=== PATIENT | male | born 1980 | race Caucasian/White ===

== ENCOUNTER 2018-07-29 13:17 | Observation (INO) | payer OTHER ==
[2018-07-29] MEDS ORDERED: KETOROLAC TROMETHAMINE INJ/PF 30 MG/1 ML SDV IV ONE (14:56)
--- NOTE | 2018-07-29 15:23 | ER Document Report ---
ED Medical Screen (RME) - General Chief Complaint: Chest Pain Stated Complaint: DIZZINESS,LEFT FLANK PAIN,CHEST PAIN Time Seen by Provider: 07/29/18 14:38 Notes: Patient is a 38-year-old male that presents to the emergency department for chief complaint of left chest pain and left flank pain. Patient reports that his pain is worse with a deep breath. Denies recent prolonged travel, or immobilization or recent surgeries. ROS: Other than noted above, the 12 point review of systems was reviewed with the patient and were negative, all pertinent findings are included in the HPI. PHYSICAL EXAMINATION: Vital signs reviewed. GENERAL: Well-appearing, well-nourished and in no acute distress. HEAD: Atraumatic, normocephalic. EYES: Pupils equal round extraocular movements intact, conjunctiva are normal. ENT: Nares patent NECK: Normal range of motion CV: Heart regular rate and rhythm LUNGS: No respiratory distress Abdomen: Left CVA tenderness with palpation Musculoskeletal: Normal range of motion NEUROLOGICAL: Normal speech PSYCH: Normal mood, normal affect. MDM: Patient seen and examined for rapid initial assessment. Vital signs reviewed. A comprehensive ED assessment and evaluation of the patient, analysis of test results and completion of the medical decision making process will be conducted by additional ED providers. *Note is created using voice recognition software and may contain spelling, syntax or grammatical errors. - Related Data Allergies/Adverse Reactions: No Known Allergies Allergy (Verified 07/29/18 14:47) Past Medical History - Social History Chew tobacco use (# tins/day): Yes - 1 Frequency of alcohol use: Social Drug Abuse: None Renal/ Medical History: Denies: Hx Peritoneal Dialysis Past Surgical History: Reports: Hx Orthopedic Surgery, Hx Testicular Surgery, Hx Tonsillectomy Physical Exam - Vital signs Vitals: Temp Pulse Resp BP Pulse Ox 99.4 F 90 16 148/81 H 97 07/29/18 13:48 07/29/18 13:48 07/29/18 13:48 07/29/18 13:48 07/29/18 13:48 Course - Vital Signs Vital signs: Temp Pulse Resp BP Pulse Ox 99.4 F 90 16 148/81 H 97 07/29/18 13:48 07/29/18 13:48 07/29/18 13:48 07/29/18 13:48 07/29/18 13:48
[2018-07-29 15:59] LABS: ABSOLUTE EOSINOPHILS # (AUTO) 0.1 10^3/uL (0.0-0.6); ABSOLUTE LYMPHOCYTES (AUTO) 1.3 10^3/uL (0.5-4.7); ABSOLUTE MONOCYTES (AUTO) 0.7 10^3/uL (0.1-1.4); ABSOLUTE NEUT (AUTO) 6.9 10^3/uL (1.7-8.2); BASOPHILS % (AUTO) 0.5 % (0-2); EOSINOPHILS % (AUTO) 0.9 % (0-6); HEMATOCRIT 41.6 % (37.9-51.0); HEMOGLOBIN 14.5 g/dL (13.5-17.0); LYMPHOCYTES % (AUTO) 14.7 % (13-45); MEAN CORPUSCULAR HEMOGLOBIN 34.6 pg (27.0-33.4); MEAN CORPUSCULAR HGB CONC 34.8 g/dL (32.0-36.0); MEAN CORPUSCULAR VOLUME 100 fl (80-97); MONOCYTES % (AUTO) 7.9 % (3-13); PLATELET COUNT 293 10^3/uL (150-450); RED BLOOD COUNT 4.18 10^6/uL (4.35-5.55); TOTAL CELLS COUNTED % (AUTO) 100 %
--- NOTE | 2018-07-29 16:19 | RADIOLOGY REPORT (SQ) ---
EXAM DESCRIPTION: CHEST SINGLE VIEW COMPLETED DATE/TIME: 07/29/2018 4:10 pm REASON FOR STUDY: chest pain COMPARISON: None. EXAM PARAMETERS: NUMBER OF VIEWS: One view. TECHNIQUE: Single frontal radiographic view of the chest acquired. RADIATION DOSE: NA LIMITATIONS: None. FINDINGS: LUNGS AND PLEURA: No opacities, masses or pneumothorax. No pleural effusion. MEDIASTINUM AND HILAR STRUCTURES: No masses. Contour normal. HEART AND VASCULAR STRUCTURES: Heart normal in size. Normal vasculature. BONES: No acute findings. HARDWARE: None in the chest. OTHER: No other significant finding. IMPRESSION: NO ACUTE RADIOGRAPHIC FINDING IN THE CHEST. TECHNICAL DOCUMENTATION: JOB ID: [id number] [id number] All Rights Reserved Reading location - IP/workstation name: [email or web address]
[2018-07-29 16:27] LABS: APPEARANCE,URINE CLEAR; BILIRUBIN,URINE NEGATIVE (NEGATIVE); COLOR,URINE YELLOW; GLUCOSE, URINE NEGATIVE (NEGATIVE); KETONES,URINE 80 mg/dL (NEGATIVE); LEUKOCYTE ESTERASE,URINE NEGATIVE (NEGATIVE); NITRITE,URINE NEGATIVE (NEGATIVE); PROTEIN,URINE NEGATIVE (NEGATIVE); URINE SPECIFIC GRAVITY 1.027; UROBILINOGEN,URINE NEGATIVE mg/dL (<2.0)
[2018-07-29 16:28] LABS: ALANINE AMINOTRANSFERASE 103 U/L (21-72); ALBUMIN 4.8 g/dL (3.5-5.0); ALKALINE PHOSPHATASE 64 U/L (38-126); ANION GAP 14 (5-19); ASPARTATE AMINO TRANSFERASE 46 U/L (17-59); BILIRUBIN,DIRECT 0.2 mg/dL (0.0-0.4); BILIRUBIN,TOTAL 0.6 mg/dL (0.2-1.3); BLOOD UREA NITROGEN 14 mg/dL (7-20); CALCIUM 9.7 mg/dL (8.4-10.2); CARBON DIOXIDE 28 mmol/L (22-30); CHLORIDE 101 mmol/L (98-107); GLUCOSE 87 mg/dL (75-110); POTASSIUM 4.7 mmol/L (3.6-5.0); SODIUM 143.2 mmol/L (137-145); TOTAL PROTEIN 7.2 g/dL (6.3-8.2)
--- NOTE | 2018-07-29 17:14 | ER Document Report ---
ED General - General Chief Complaint: Chest Pain Stated Complaint: DIZZINESS,LEFT FLANK PAIN,CHEST PAIN Time Seen by Provider: 07/29/18 14:38 Notes: Patient is a 38-year-old male who presents to the emergency department with a chief complaint of left sided chest pain and left sided flank pain. He states that he has been having his symptoms for the past few days and has progressively gotten worse. He does have some nausea, dizziness, and pain when he takes deep breaths. He does have a history of testicular cancer. He denies any dysuria, hematuria, or penile discharge. He denies cigarette use, admits to drinking about 1-2 drinks a day, and denies any illicit drug use. - Related Data Allergies/Adverse Reactions: No Known Allergies Allergy (Verified 07/29/18 14:47) Past Medical History - Social History Smoking Status: Current Every Day Smoker Chew tobacco use (# tins/day): Yes - 1 Frequency of alcohol use: Social Drug Abuse: None Family History: Reviewed & Not Pertinent Patient has suicidal ideation: No Patient has homicidal ideation: No Renal/ Medical History: Denies: Hx Peritoneal Dialysis Past Surgical History: Reports: Hx Orthopedic Surgery, Hx Testicular Surgery, Hx Tonsillectomy Review of Systems - Review of Systems Notes: REVIEW OF SYSTEMS: CONSTITUTIONAL : Denies recent illness. Denies recent unintentional weight loss. Denies fever, chills, or sweats. EENT: Denies eye, ear, throat, or mouth pain, discharge, or symptoms. Denies nasal or sinus congestion. CARDIOVASCULAR: See HPI RESPIRATORY: See HPI GASTROINTESTINAL: Denies nausea, vomiting, and diarrhea. Denies abdominal pain. Denies constipation. GENITOURINARY: Denies difficulty urinating, burning, blood in urine, urgency or frequency. MUSCULOSKELETAL: See HPI SKIN: Denies rash, itchiness, or lesions HEMATOLOGIC : Denies easy bruising or bleeding. LYMPHATIC: Denies swollen, painful, enlarged glands. NEUROLOGICAL: Denies no numbness or tingling denies weakness. Denies headache. Denies altered mental status. Denies alteration in speech. PSYCHIATRIC: Denies stress, anxiety, alteration in sleep patterns, or depression. All other systems reviewed and negative. Physical Exam - Vital signs Vitals: Temp Pulse Resp BP Pulse Ox 99.4 F 90 16 148/81 H 97 07/29/18 13:48 07/29/18 13:48 07/29/18 13:48 07/29/18 13:48 07/29/18 13:48 - Notes Notes: PHYSICAL EXAMINATION: GENERAL: Appears well, healthy, well-nourished, no acute distress. HEAD: Normocephalic, atraumatic. EYES: PERRL, conjunctiva normal, all extraocular movements intact, sclera nonicteric ENT: Moist mucous membranes. NECK: Supple, no noticeable swelling, redness, rash. Normal range of motion. LUNGS: Equal breath sounds bilaterally and clear to auscultation. No wheezes rales or rhonchi. CARDIOVASCULAR: S1-S2, regular rate, regular rhythm. Radial pulses 2+, normal. ABDOMEN: Normoactive bowel sounds. Soft, nontender, no guarding, no rebound tenderness, and no masses palpated. EXTREMITIES: Normal strength and range of motion, no pitting or edema. No cyanosis. NEUROLOGICAL: Moves all extremities upon command. Strength 5/5 in all extremities. PSYCH: Normal mood, normal affect. SKIN: Warm, dry. No rash, lesions, ulcerations noted. Normal skin turgor. Course - Re-evaluation Re-evalutation: Differential diagnosis includes NSTEMI, pneumonia, left renal calculi, pulmonary embolism, and spontaneous pneumothorax. 07/29/18 17:30 Patient's chest x-ray is negative for any infiltrates. His CBC, chemistries, and urinalysis are unremarkable. Patient's d-dimer is 1.25. He will be sent for a CT of the chest to rule out pulmonary emboli. 07/29/18 1840 I received a call from the radiologist, Dr. Huizar. The patient does have a left lobe pulmonary emboli noted on his CT. He also does have liver disease. 07/29/18 18:[address] Darnell, the patient will be admitted as inpatient. - Vital Signs Vital signs: Temp Pulse Resp BP Pulse Ox 98.5 F 90 12 150/90 H 99 07/29/18 20:13 07/29/18 13:48 07/29/18 20:13 07/29/18 20:13 07/29/18 20:13 - Laboratory Result Diagrams: 07/29/18 15:44 07/29/18 15:44 Laboratory results interpreted by me: 07/29/18 07/29/18 07/29/18 15:44 15:44 15:44 RBC 4.18 L MCV 100 H MCH 34.6 H RDW 15.0 H D-Dimer ALT 103 H Urine Ketones 80 H 07/29/18 15:44 RBC MCV MCH RDW D-Dimer 1.25 H ALT Urine Ketones - EKG Interpretation by Me Additional EKG results interpreted by me: 07/29/18 18:49 Sinus rhythm. Heart rate 84. WI 132; QRS 94; QT 356; QTC 421. No ST eleva tions or depressions. Discharge - Discharge Clinical Impression: Pulmonary emboli Qualifiers: Pulmonary embolism type: unspecified Chronicity: acute Acute cor pulmonale presence: without acute cor pulmonale Qualified Code(s): I26.99 - Other pulmonary embolism without acute cor pulmonale Condition: Fair Disposition: ADMITTED INPATIENT Admitting Provider: Hospitalist Unit Admitted: [facility], [place]
--- NOTE | 2018-07-29 18:55 | RADIOLOGY REPORT (SQ) ---
EXAM DESCRIPTION: CTA CHEST COMPLETED DATE/TIME: 07/29/2018 6:11 pm REASON FOR STUDY: positive d-dimer; chest pain COMPARISON: None. TECHNIQUE: CT scan of the chest performed using helical scanning technique with dynamic intravenous contrast injection. Images reviewed with lung, soft tissue and bone windows. Reconstructed coronal and sagittal MPR images reviewed. Additional 3 dimensional post-processing performed to develop Maximal Intensity Projection images (WA P). All images stored on PACS. All CT scanners at this facility use dose modulation, iterative reconstruction, and/or weight based d osing when appropriate to reduce radiation dose to as low as reasonably achievable (ALARA). [facility]: Dose Right [facility]: CareDose [facility]: Dose Right [facility]: Teradose 4D [facility]: [employer] CONTRAST TYPE AND DOSE: contrast/concentration: Isovue 350.00 mg/ml; Total Contrast Delivered: 86.0 ml; Total Saline Delivered: 80.0 ml Contrast bolus optimized for the pulmonary arteries. Not diagnostic for the aorta. RENAL FUNCTION: GFR > 60. RADIATION DOSE: CT Rad equipment meets quality standard of care and radiation dose reduction techniq ues were employed. CTDIvol: 23.1 - 33.1 mGy. DLP: 1006 mGy-cm. . LIMITATIONS: None. FINDINGS: LUNGS AND PLEURA: Trace subsegmental atelectasis and tiny pleural effusion in the left lo wer lobe. No pneumothorax. No pleural effusions or pleural calcifications. AORTA AND GREAT VESSELS: No aneurysm. Contrast bolus not optimized for the aorta. HEART: No pericardial effusion. No significant coronary artery calcifications. PULMONARY ARTERIES: Small segmental pulmonary arterial embolism in the posterior segment left lower lobe. No emboli visualized in the central pulmonary arteries or remaining the segmental branches. HILAR AND MEDIASTINAL STRUCTURES: No identified masses or abnormal nodes. HARDWARE: None in the chest. UPPER ABDOMEN: Two enhancing lesions in a diffusely fatty infiltrated liver, the largest measures mercy roximately 4.2 cm with mild heterogeneous appearance, this is in the inferior right lobe adjacent to the IVC, a 2nd 2.5 cm lesion is present in the posterior right lobe near the dome of the diaphragm. Limited exam. THYROID AND OTHER SOFT TISSUES: No masses. No adenopathy. BONES: No acute or significant finding. 3D MIPS: Confirm above findings. OTHER: No other significant finding. IMPRESSION: Small segmental pulmonary arterial embolism in the posterior segment left lower lobe. No emboli visualized in the central pulmonary arteries or remaining the segmental branches. Two enhancing lesions in a diffusely fatty infiltrated liver, the largest measures approximately 4.2 cm with mild heterogeneous appearance, this is in the inferior right lobe adjacent to the IVC, a 2nd 2.5 cm lesion is present in the posterior right lobe near the dome of the diaphragm. Limited exam. Consider outpatient follow-up ultrasound or dedicated hepatic protocol contrast CT to further assess. COMMENT: These results were called to Dr. Frost at 1840 hours. Results were confirmed and read back . Quality ID # [id number]: Final reports with documentation of one or more dose reduction techniques (e.g., Au tomated exposure control, adjustment of the mA and/or kV according to patient size, use of iterative reconstruction technique) TECHNICAL DOCUMENTATION: JOB ID: [id number] [employer]- All Rights Reserved Reading location - IP/workstation name: [email or web address]
--- NOTE | 2018-07-29 19:29 | EKG REPORT ---
SEVERITY:- ABNORMAL ECG - SINUS RHYTHM NONSPECIFIC T ABNORMALITIES, INFERIOR LEADS : Confirmed by: Samir Yang MD 29-Jul-2018 19:29:08
[2018-07-29] MEDS ORDERED: ENOXAPARIN SODIUM INJ 120 MG/0.8 ML DISP.SYRIN SUBCUT SCH (19:45)
[2018-07-29] MEDS ORDERED: ONDANSETRON HCL INJ/PF 4 MG/2 ML SDV IV PRN (20:24)
[2018-07-29] MEDS ORDERED: ONDANSETRON 4 MG TAB.RAPDIS PO PRN (20:24)
[2018-07-29] MEDS ORDERED: LORAZEPAM INJ 2 MG/1 ML VIAL IV PRN (20:31)
[2018-07-29] MEDS ORDERED: MORPHINE SULFATE 10 MG/ML INJ IV PRN (20:43)
--- NOTE | 2018-07-29 20:47 | PDOC H&P ---
History of Present Illness Admission Date/PCP: 07/29/18 18:54 Patient complains of: Left-sided chest pain for the last few days History of Present Illness: MARIO VARGAS is a 38 year old male with history of hypertension, testicular cancer left side status post surgery, mild PTSD, anxiety disorder came to the emergency room with complaints of left-sided chest pain for the last several days. The chest pain gotten worse and from yesterday. 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 The workup done in the ER shows small pulmonary embolism in the left lower lobe on CT. Medical consult was called for admission and further management. Past Medical History Cardiac Medical History: Reports: Hypertension Malignancy Medical History: Reports: Other - Testicular cancer status post r emoval of the left testicle and complete rec GI Medical History: Reports: None Musculoskeltal Medical History: Reports: Arthritis Psychiatric Medical History: Reports: Depression, General Anxiety Disorder Traumatic Medical History: Reports: None Past Surgical History Past Surgical History: Reports: Orthopedic Surgery, Tonsillectomy Social History Smoking Status: Current Every Day Smoker Frequency of Alcohol Use: Heavy Hx Recreational Drug Use: No Hx Prescription Drug Abuse: No - Advance Directive Resuscitation Status: Full Code Family History Parental Family History Reviewed: Yes - Mother with myelodysplastic syndrome Children Family History Reviewed: Yes Sibling(s) Family History Reviewed.: Yes Medication/Allergy Home Medications: Bupropion HCl [Wellbutrin Xl 300mg 24hr Tablet] 300 mg PO DAILY 07/29/18 Allergies/Adverse Reactions: No Known Allergies Allergy (Verified 07/29/18 14:47) Review of Systems Constitutional: ABSENT: chills, fatigue, fever(s), headache(s), weakness Eyes: ABSENT: visual disturbances Ears: ABSENT: hearing changes Nose, Mouth, and Throat: ABSENT: sore throat Cardiovascular: PRESENT: chest pain Respiratory: PRESENT: dyspnea Gastrointestinal: ABSENT: diarrhea, dysphagia, melena, nausea, vomiting Musculoskeletal: ABSENT: joint swelling Integumentary: ABSENT: rash, wounds Neurological: PRESENT: dizziness Psychiatric: ABSENT: anxiety, depression, homidical ideation, suicidal ideation Endocrine: ABSENT: cold intolerance, heat intolerance, polydipsia, polyuria Physical Exam Vital Signs: Temp Pulse Resp BP Pulse Ox 98.5 F 90 12 150/90 H 99 07/29/18 20:13 07/29/18 13:48 07/29/18 20:13 07/29/18 20:13 07/29/18 20:13 Intake & Output 07/28/18 07/29/18 07/30/18 06:59 06:59 06:59 Weight 112.6 kg General appearance: PRESENT: no acute distress Head exam: PRESENT: atraumatic Eye exam: PRESENT: PERRLA Mouth exam: PRESENT: dry mucosa Neck exam: ABSENT: carotid bruit, JVD, lymphadenopathy, thyromegaly Respiratory exam: PRESENT: clear to auscultation mariela. ABSENT: rales, rhonchi, wheezes Cardiovascular exam: PRESENT: RRR. ABSENT: diastolic murmur, rubs, systolic murmur GI/Abdominal exam: PRESENT: normal bowel sounds, soft. ABSENT: distended, guarding, mass, organolmegaly, rebound, tenderness Extremities exam: PRESENT: full ROM. ABSENT: calf tenderness, clubbing, pedal edema Neurological exam: PRESENT: alert, awake, oriented to person, oriented to place, oriented to time, oriented to situation, CN II-XII grossly intact. ABSENT: motor sensory deficit Psychiatric exam: PRESENT: appropriate affect, normal mood. ABSENT: homicidal ideation, suicidal ideation Results Laboratory Results: 07/29/18 15:44 07/29/18 15:44 07/29/18 07/29/18 07/29/18 15:44 15:44 15:44 WBC 9.0 RBC 4.18 L Hgb 14.5 Hct 41.6 MCV 100 H MCH 34.6 H MCHC 34.8 RDW 15.0 H Plt Count 293 Seg Neutrophils % 76.0 Lymphocytes % 14.7 Monocytes % 7.9 Eosinophils % 0.9 Basophils % 0.5 Absolute Neutrophils 6.9 Absolute Lymphocytes 1.3 Absolute Monocytes 0.7 Absolute Eosinophils 0.1 Absolute Basophils 0.0 Sodium 143.2 Potassium 4.7 Chloride 101 Carbon Dioxide 28 Anion Gap 14 BUN 14 Creatinine 0.90 Est GFR ( Amer) > 60 Est GFR (Non-Af Amer) > 60 Glucose 87 Calcium 9.7 Total Bilirubin 0.6 AST 46 ALT 103 H Alkaline Phosphatase 64 Total Protein 7.2 Albumin 4.8 Urine Color YELLOW Urine Appearance CLEAR Urine pH 5.0 Ur Specific [place] 1.027 Urine Protein NEGATIVE Urine Glucose (UA) NEGATIVE Urine Ketones 80 H Urine Blood NEGATIVE Urine Nitrite NEGATIVE Ur Leukocyte Esterase NEGATIVE Urine WBC (Auto) 0 Urine RBC (Auto) 0 07/29/18 07/29/18 15:44 18:29 Troponin I < 0.012 < 0.012 Impressions: Chest X-Ray 07/29/18 14:55 IMPRESSION: NO ACUTE RADIOGRAPHIC FINDING IN THE CHEST. Chest/Abdomen CTA 07/29/18 17:06 IMPRESSION: Small segmental pulmonary arterial embolism in the posterior segment left lower lobe. No emboli visualized in the central pulmonary arteries or remaining the segmental branches. Two enhancing lesions in a diffusely fatty infiltrated liver, the largest measures approximately 4.2 cm with mild heterogeneous appearance, this is in the inferior right lobe adjacent to the IVC, a 2nd 2.5 cm lesion is present in the posterior right lobe near the dome of the diaphragm. Limited exam. Consider outpatient follow-up ultrasound or dedicated hepatic protocol contrast CT to further assess. Assessment & Plan - Diagnosis (1) Pulmonary emboli Qualifiers: Pulmonary embolism type: unspecified Chronicity: acute Acute cor pulmonale presence: without acute cor pulmonale Qualified Code(s): I26.99 - Other pulmonary embolism without acute cor pulmonale Is this a current diagnosis for this admission?: Yes Plan: 07/29/2018-CT done in the emergency room because of the chest pain found to have a small SM[facility] mental pulmonary arterial embolism in the posterior segment of the left lower lobe. Patient is going to be in IMCU started on Lovenox 110 mg subcu twice daily. Started on Xarelto 10 mg p.o. daily from [facility]. Hematology consult was requested. Cardiac enzymes x3 was requested. Echocardiogram is going to be requested. Antiphospholipid antibody workup was requested. Going to put him on morphine 2 mg IV every 6 as needed for pain. Going to check PT/INR today and tomorrow. PT studies will be done to rule out any clots in the lower extremities. (2) HTN (hypertension) Qualifiers: Hypertension type: essential hypertension Qualified Code(s): I10 - Essential (primary) hypertension Is this a current diagnosis for this admission?: Yes Plan: 07/29/2018-patient is given the history of hypertension but is not any hypertensive medications at home his blood pressure here in the emergency room 148/81. I am going to start him on lisinopril 10 mg p.o. daily. (3) Anxiety Is this a current diagnosis for this admission?: Yes Plan: 07/29/2018-patient is given the history of anxiety and he says is getting worse with the Wellbutrin. I put him on Ativan 1 mg IV every 6 as needed for anxiety and agitation. (4) Testicular cancer Is this a current diagnosis for this admission?: Yes Plan: 07/29/2018-patient given the history of testicular cancer left-sided and he said left testicles was removed and cancer is completely cured he is not following with oncologist anymore. (5) Hepatic lesion Is this a current diagnosis for this admission?: Yes Plan: 07/29/2018-patient has hepatic lesions, has history of testicular cancer planning to arrange for CT abdomen and pelvis with p.o. IV contrast with focus on the liver. - Time Time Spent: 50 to 70 Minutes Smoking Cessation Education: over 10 minutes Medications reviewed and adjusted accordingly: Yes Anticipated discharge: Home
[2018-07-29] MEDS: ENOXAPARIN SODIUM INJ 120 MG/0.8 ML DISP.SYRIN SUBCUT SCH (22:16)
[2018-07-29] MEDS: FAMOTIDINE INJ/PF 20 MG/2 ML SDV IV SCH (22:21)
[2018-07-30 01:13] LABS: CREATINE KINASE MB < 0.22 ng/mL (<4.55); TROPONIN I < 0.012 ng/mL
[2018-07-30 06:51] LABS: ABSOLUTE EOSINOPHILS # (AUTO) 0.2 10^3/uL (0.0-0.6); ABSOLUTE MONOCYTES (AUTO) 0.7 10^3/uL (0.1-1.4); ABSOLUTE NEUT (AUTO) 4.6 10^3/uL (1.7-8.2); BASOPHILS % (AUTO) 0.6 % (0-2); EOSINOPHILS % (AUTO) 2.6 % (0-6); HEMATOCRIT 39.6 % (37.9-51.0); HEMOGLOBIN 13.4 g/dL (13.5-17.0); LYMPHOCYTES % (AUTO) 26.9 % (13-45); MEAN CORPUSCULAR HEMOGLOBIN 34.2 pg (27.0-33.4); MEAN CORPUSCULAR HGB CONC 33.9 g/dL (32.0-36.0); MEAN CORPUSCULAR VOLUME 101 fl (80-97); MONOCYTES % (AUTO) 9.4 % (3-13); PLATELET COUNT 278 10^3/uL (150-450); RED BLOOD COUNT 3.93 10^6/uL (4.35-5.55); RED CELL DISTRIBUTION WIDTH 15.1 % (11.5-14.0); SEGMENTED NEUTROPHILS % (AUTO) 60.5 % (42-78); TOTAL CELLS COUNTED % (AUTO) 100 %; WHITE BLOOD COUNT 7.5 10^3/uL (4.0-10.5)
[2018-07-30 06:59] LABS: INTERNATIONAL RATION (INR) 0.99; PROTHROMBIN TIME 13.6 SEC (11.4-15.4)
[2018-07-30 07:31] LABS: ALANINE AMINOTRANSFERASE 86 U/L (21-72); ALKALINE PHOSPHATASE 57 U/L (38-126); ANION GAP 11 (5-19); ASPARTATE AMINO TRANSFERASE 43 U/L (17-59); BILIRUBIN,DIRECT 0.2 mg/dL (0.0-0.4); BILIRUBIN,TOTAL 0.8 mg/dL (0.2-1.3); BLOOD UREA NITROGEN 15 mg/dL (7-20); CALCIUM 9.2 mg/dL (8.4-10.2); CARBON DIOXIDE 26 mmol/L (22-30); CHLORIDE 104 mmol/L (98-107); GLUCOSE 80 mg/dL (75-110); POTASSIUM 5.2 mmol/L (3.6-5.0); SODIUM 140.5 mmol/L (137-145); TOTAL PROTEIN 6.1 g/dL (6.3-8.2)
[2018-07-30 07:48] LABS: CREATINE KINASE MB < 0.22 ng/mL (<4.55); TROPONIN I < 0.012 ng/mL
--- NOTE | 2018-07-30 08:10 | EKG REPORT ---
SEVERITY:- NORMAL ECG - SINUS RHYTHM : Confirmed by: Samir Yang MD 30-Jul-2018 08:09:22
[2018-07-30] MEDS ORDERED: NICOTINE 14 MG/24 HR PATCH.TD24 TD SCH (10:00)
[2018-07-30] MEDS: LISINOPRIL 10 MG TABLET PO SCH (10:15)
[2018-07-30] MEDS: FAMOTIDINE INJ/PF 20 MG/2 ML SDV IV SCH ×2 (10:15→22:50)
[2018-07-30] MEDS: ENOXAPARIN SODIUM INJ 120 MG/0.8 ML DISP.SYRIN SUBCUT SCH (10:17)
--- NOTE | 2018-07-30 10:39 | RADIOLOGY REPORT (SQ) ---
EXAM DESCRIPTION: VENOUS BILATERAL LOWER COMPLETED DATE/TIME: 07/30/2018 10:25 am REASON FOR STUDY: r/o dvt COMPARISON: None. TECHNIQUE: Dynamic and static morrison scale and color images acquired of both lower extremity venous sy stems. Selected spectral images acquired with additional compression and augmentation maneuvers. Imag es stored on PACS. LIMITATIONS: None. FINDINGS: RIGHT LEG COMMON FEMORAL AND FEMORAL: Normal phasicity, compression and augmentation. No visualized echogenic m aterial on morrison scale. No defects on color images. POPLITEAL: Normal compression and augmentation. No visualized echogenic material on morrison scale. No de fects on color images. CALF VESSELS: Normal compression and augmentation. No visualized echogenic material on morrison scale. No defects on color image. GSV AND SSV: Normal compression. No visualized echogenic material on morrison scale. No defects on color images. ANY DEEP VENOUS INSUFFICIENCY: Not evaluated. ANY EVIDENCE OF POPLITEAL CYST: No. OTHER: No other significant finding. LEFT LEG COMMON FEMORAL AND FEMORAL: Normal phasicity, compression and augmentation. No visualized echogenic m aterial on morrison scale. No defects on color images. POPLITEAL: Normal compression and augmentation. No visualized echogenic material on morrison scale. No de fects on color images. CALF VESSELS: Normal compression and augmentation. No visualized echogenic material on morrison scale. No defects on color images. GSV AND SSV: Normal compression. No visualized echogenic material on morrison scale. No defects on color images. ANY DEEP VENOUS INSUFFICIENCY: Not evaluated. ANY EVIDENCE POPLITEAL CYST: No. OTHER: No other significant finding. IMPRESSION: NO EVIDENCE DVT OR SVT IN EITHER LEG. TECHNICAL DOCUMENTATION: JOB ID: [id number]- All Rights Reserved Reading location - IP/workstation name: [email or web address]
--- NOTE | 2018-07-30 11:17 | PDOC PROGRESS REPORT ---
Subjective Progress Note for:: 07/30/18 Subjective:: Admitted on 07/29 after found to have sub-segmental PE on CTA. Continues to have lower back pain and occasional SOB. Notes that he has had increased stress lately. Was started on Lovenox 1mg/kg BID + Xarelto by admitting doctor. Tolerating well without evidence bleeding. Pt was getting TTE and lower extremity dopplers at time of exam. NO other complaints at this point. Reason For Visit: PULMONARY EMBOLISM Physical Exam Vital Signs: Temp Pulse Resp BP Pulse Ox 98.2 F 56 L 18 132/72 H 99 07/30/18 08:13 07/30/18 08:13 07/30/18 08:13 07/30/18 08:13 07/30/18 08:13 Intake & Output 07/29/18 07/30/18 07/31/18 06:59 06:59 06:59 Intake Total 1250 Balance 1250 Weight 113 kg General appearance: PRESENT: no acute distress, cooperative, well-developed, well-nourished Mouth exam: PRESENT: moist Respiratory exam: PRESENT: symmetrical, unlabored. ABSENT: chest wall tenderness, tachypnea Cardiovascular exam: PRESENT: RRR. ABSENT: tachycardia GI/Abdominal exam: PRESENT: soft. ABSENT: mass, tenderness Extremities exam: ABSENT: +1 edema Neurological exam: PRESENT: alert, awake, CN II-XII grossly intact Psychiatric exam: PRESENT: appropriate affect, normal mood Skin exam: PRESENT: dry, intact, warm Results Laboratory Results: 07/30/18 06:18 07/30/18 06:18 07/29/18 07/29/18 07/29/18 15:44 15:44 15:44 WBC 9.0 RBC 4.18 L Hgb 14.5 Hct 41.6 MCV 100 H MCH 34.6 H MCHC 34.8 RDW 15.0 H Plt Count 293 Seg Neutrophils % 76.0 Lymphocytes % 14.7 Monocytes % 7.9 Eosinophils % 0.9 Basophils % 0.5 Absolute Neutrophils 6.9 Absolute Lymphocytes 1.3 Absolute Monocytes 0.7 Absolute Eosinophils 0.1 Absolute Basophils 0.0 Sodium 143.2 Potassium 4.7 Chloride 101 Carbon Dioxide 28 Anion Gap 14 BUN 14 Creatinine 0.90 Est GFR ( Amer) > 60 Est GFR (Non-Af Amer) > 60 Glucose 87 Calcium 9.7 Total Bilirubin 0.6 AST 46 ALT 103 H Alkaline Phosphatase 64 Total Protein 7.2 Albumin 4.8 TSH Urine Color YELLOW Urine Appearance CLEAR Urine pH 5.0 Ur Specific [place] 1.027 Urine Protein NEGATIVE Urine Glucose (UA) NEGATIVE Urine Ketones 80 H Urine Blood NEGATIVE Urine Nitrite NEGATIVE Ur Leukocyte Esterase NEGATIVE Urine WBC (Auto) 0 Urine RBC (Auto) 0 07/30/18 07/30/18 07/30/18 06:18 06:18 06:18 WBC 7.5 RBC 3.93 L Hgb 13.4 L Hct 39.6 MCV 101 H MCH 34.2 H MCHC 33.9 RDW 15.1 H Plt Count 278 Seg Neutrophils % 60.5 Lymphocytes % 26.9 Monocytes % 9.4 Eosinophils % 2.6 Basophils % 0.6 Absolute Neutrophils 4.6 Absolute Lymphocytes 2.0 Absolute Monocytes 0.7 Absolute Eosinophils 0.2 Absolute Basophils 0.0 Sodium 140.5 Potassium 5.2 H Chloride 104 Carbon Dioxide 26 Anion Gap 11 BUN 15 Creatinine 0.89 Est GFR ( Amer) > 60 Est GFR (Non-Af Amer) > 60 Glucose 80 Calcium 9.2 Total Bilirubin 0.8 AST 43 ALT 86 H Alkaline Phosphatase 57 Total Protein 6.1 L Albumin 4.0 TSH 9.13 H Urine Color Urine Appearance Urine pH Ur Specific [place] Urine Protein Urine Glucose (UA) Urine Ketones Urine Blood Urine Nitrite Ur Leukocyte Esterase Urine WBC (Auto) Urine RBC (Auto) 07/29/18 07/29/18 07/30/18 15:44 18:29 00:38 Creatine Kinase 54 L CK-MB (CK-2) Troponin I < 0.012 < 0.012 07/30/18 07/30/18 07/30/18 00:38 06:18 06:18 Creatine Kinase 50 L CK-MB (CK-2) < 0.22 < 0.22 Troponin I < 0.012 < 0.012 Impressions: Chest X-Ray 07/29/18 14:55 IMPRESSION: NO ACUTE RADIOGRAPHIC FINDING IN THE CHEST. Chest/Abdomen CTA 07/29/18 17:06 IMPRESSION: Small segmental pulmonary arterial embolism in the posterior segment left lower lobe. No emboli visualized in the central pulmonary arteries or remaining the segmental branches. Two enhancing lesions in a diffusely fatty infiltrated liver, the largest measures approximately 4.2 cm with mild heterogeneous appearance, this is in the inferior right lobe adjacent to the IVC, a 2nd 2.5 cm lesion is present in the posterior right lobe near the dome of the diaphragm. Limited exam. Consider outpatient follow-up ultrasound or dedicated hepatic protocol contrast CT to further assess. Venous Doppler Study 07/30/18 00:00 IMPRESSION: NO EVIDENCE DVT OR SVT IN EITHER LEG. Status: Pending - CT A/P Assessment & Plan - Diagnosis (1) Pulmonary emboli Qualifiers: Pulmonary embolism type: unspecified Chronicity: acute Acute cor pulmonale presence: without acute cor pulmonale Qualified Code(s): I26.99 - Other pulmonary embolism without acute cor pulmonale Is this a current diagnosis for this admission?: Yes Plan: Noted to have small subsegmental PE on left lower lobe. Continues to be symptomatic however this is out of proportion to a small PE. Troponins have been negative. - Risk factors: Has hx of testicular cancer, however in remission; overweight; denies tobacco use, no family history or recent long distance travel/trips - Was on Lovenox 110mg BID + Xarelto 10mg PM, d/c-ed on 07/30 - Started Xarelto 15mg BID for 21 days followed by Xarelto 20mg daily. Will need to be treated for 3 months and should be followed by hematology to discuss whether or not to continue - LE doppler studies on 07/30 negative for DVT - TTE on 07/30 obtained; formal reading pending - APLS antibodies were ordered; these will NOT be reliable in setting of acute VTE - Hematology was consulted; order d/c-ed. Should follow up with heme as outpatient in 3 months (2) Hepatic lesion Is this a current diagnosis for this admission?: Yes Plan: Noted on CTA chest. This appears to be an incidental finding - Patient notes that he was told that he had liver "cysts" at time of testicular cancer however does not appear this was worked up further - Dedicated CT AP ordered and pending - Patient noted to have fatty liver and has history of EtOH use. Will need to evaluate if this could be HCC given history. (3) Anxiety Is this a current diagnosis for this admission?: Yes Plan: Currently on Wellbutrin; has Ativan ordered PRN (4) HTN (hypertension) Qualifiers: Hypertension type: essential hypertension Qualified Code(s): I10 - Ess ential (primary) hypertension Is this a current diagnosis for this admission?: Yes Plan: BPs normotensive to borderline here - Continue Lisinopril 10mg PO daily (5) Testicular cancer Is this a current diagnosis for this admission?: Yes Plan: Per patient had surgical orchiectomy at [facility], date unclear - Followed up for 6 months and was told to be cancer free - Has not followed up with Oncology since that time - Time Time Spent with patient: Less than 15 minutes Anticipated discharge: Home Within: within 24 hours - Awaiting CT A/P and echo results, likely d/c to home on 07/31
--- NOTE | 2018-07-30 12:12 | XCELERA REPORT ---
[address] [address] Transthoracic Echocardiogram Report Name: MARIO VARGAS Age: 38 yrs Gender: Male : 1980 Patient Status: Inpatient Patient Location: [facility]^A Study Date: 07/30/2018 09:09 AM Height: 70 in Weight: 248 lb BSA: 2.3 m2 Procedure: A two-dimensional transthoracic echocardiogram with color flow and Doppler was performed. The study was technically difficult with many images being suboptimal in quality. Reason For Study: pulmonary embolosm History: pulmonary embolosm. Ordering Physician: JULIA BARAJAS Performed By: Mario Pack Interpretation Summary The left ventricle is normal in size. There is mild concentric left ventricular hypertrophy. LV EF is > than 55%.% The left ventricular ejection fraction is within normal limits. Doppler measurements suggest normal left ventricular diastolic function Cannot exclude mild hypokinesis of qpicalinferior wall.Rest of LV cooney contract normally. Right atrium not well visualized secondary to technical limitations The left atrial size is normal. There is no evidence of mitral valve prolapse. There is no vegetation seen on the mitral valve. There is no mitral valve stenosis. There is no mitral regurgitation noted. There is no aortic valve stenosis No aortic regurgitation is present. There is no tricuspid stenosis. There is a trace amount of tricuspid regurgitation Unable to calculate RVSP due lack of TR jet. There is a trace amount of pulmonic regurgitation There is no pulmonic valvular stenosis. There is no pericardial effusion. MMode/2D Measurements & Calculations RVDd: 3.0 cm LVIDd: 4.9 cm FS: 29.5 % Ao root diam: 3.3 cm IVSd: 1.2 cm LVIDs: 3.5 cm EDV(Teich): 112.7 ml Ao root area: 8.5 cm2 LVPWd: 1.1 cm ESV(Teich): 49.3 ml LA dimension: 3.4 cm EF(Teich): 56.2 % LVOT diam: 2.1 cm LVOT area: 3.3 cm2 Doppler Measurements & Calculations MV E max sabine: MV P1/2t max sabine: Ao V2 max: LV V1 max P.1 cm/sec 78.2 cm/sec 91.8 cm/sec 2.1 mmHg MV A max sabine: MV P1/2t: 56.5 msec Ao max P.4 mmHgLV V1 mean P.4 cm/sec MVA(P1/2t): 3.9 cm2 Ao V2 mean: 1.1 mmHg MV E/A: 1.5 MV dec slope: 73.0 cm/sec LV V1 max: Ao mean P.8 cm/sec 405.0 cm/sec2 2.4 mmHg LV V1 mean: MV dec time: 0.15 sec Ao V2 VTI: 18.5 cm 48.5 cm/sec TRU(I,D): 2.4 cm2 LV V1 VTI: 13.5 cm TRU(V,D): 2.6 cm2 SV(LVOT): 44.9 ml PA V2 max: PI end-d sabine: MV P1/2t-pr_phl: 78.5 cm/sec 108.6 cm/sec 56.5 msec PA max P.5 mmHg Left Ventricle The left ventricle is normal in size. There is mild concentric left ventricular hypertrophy. LV EF is > than 55%.%. The left ventricular ejection fraction is within normal limits. Doppler measurements suggest normal left ventricular diastolic function. Cannot exclude mild hypokinesis of qpicalinferior wall.Rest of LV cooney contract normally. Right Ventricle The right ventricle is not well visualized secondary to technical limitations. Atria Right atrium not well visualized secondary to technical limitations. The left atrial size is normal. Mitral Valve There is no evidence of mitral valve prolapse. There is no vegetation seen on the mitral valve. There is no mitral valve stenosis. There is no mitral regurgitation noted. Aortic Valve There is no aortic valve stenosis. No aortic regurgitation is present. Tricuspid Valve There is no tricuspid stenosis. There is a trace amount of tricuspid regurgitation. Unable to calculate RVSP due lack of TR jet. Pulmonic Valve There is no pulmonic valvular stenosis. There is a trace amount of pulmonic regurgitation. Great Vessels The aortic root is normal size. Effusions There is no pericardial effusion. : JULIA BARAJAS > Joyce Cespedes
--- NOTE | 2018-07-30 12:15 | PDOC CONSULTATION ---
Consultation Consult Date: 07/30/18 Consult reason:: Hematology/Oncology consultation was requested for patient with a new Pulmonary Embolism and history of Testicular cancer. History of Present Illness Admission Date/PCP: 07/29/18 18:54 History of Present Illness: MARIO VARGAS is a 38 year old male who states that he was diagnosed with Testicular cancer 2 years ago. He was treated in [place] at [facility] and underwent surgery followed by surveillance CT scans and blood work only. However, he was release from further follow-up by oncology. He states that he had been feeling well until 1 week ago when he began having anxiety for no reason. He states that during lunch, he had sudden episode of lightheaded, nausea, and overall feeling poorly. He denies chest pain. He was found on admission to have a new small PE and was started on Lovenox. Today, he is feeling better. He is anxious to go home. Past Medical History Cardiac Medical History: Reports: Hypertension Malignancy Medical History: Reports: Other - Testicular cancer status post removal of the left testicle and complete rec GI Medical History: Reports: None Musculoskeltal Medical History: Reports: Arthritis Musculoskeletal History Note: Herniated discs. Psychiatric Medical History: Reports: Depression, General Anxiety Disorder Traumatic Medical History: Reports: None Past Surgical History Past Surgical History: Reports: Orthopedic Surgery - Right shoulder, left elbow, Tonsillectomy, Other - [place] teeth Social History Information Source: Patient Occupation: He is with 2 children. He works in Sales. He does use smokeless tobacco. Lives with: Family, Spouse/Significant other Smoking Status: Former Smoker Last Time Smoked: 2009 Frequency of Alcohol Use: Heavy Amount of Alcoholic Beverages Per Day: Bottle of Vodka per week. Hx Recreational Drug Use: No Hx Prescription Drug Abuse: No - Advance Directive Resuscitation Status: Full Code Family History Family History: Reviewed & Not Pertinent Parental Family History Reviewed: Yes - Mom with MDS. Father healthy Children Family History Reviewed: Yes Sibling(s) Family History Reviewed.: Yes Medication/Allergy Home Medications: Bupropion HCl [Wellbutrin Xl 300mg 24hr Tablet] 300 mg PO DAILY 07/29/18 Allergies/Adverse Reactions: No Known Allergies Allergy (Verified 07/29/18 14:47) Review of Systems Constitutional: ABSENT: fever(s), headache(s) Eyes: ABSENT: visual disturbances Ears: ABSENT: hearing changes Nose, Mouth, and Throat: ABSENT: sore throat Cardiovascular: ABSENT: chest pain Respiratory: PRESENT: dyspnea Gastrointestinal: PRESENT: nausea Genitourinary: ABSENT: dysuria Musculoskeletal: PRESENT: back pain Integumentary: ABSENT: rash Neurological: PRESENT: dizziness, weakness Psychiatric: ABSENT: depression Hematologic/Lymphatic: ABSENT: easy bruising Physical Exam Vital Signs: Temp Pulse Resp BP Pulse Ox 98.2 F 56 L 18 132/72 H 99 07/30/18 08:13 07/30/18 08:13 07/30/18 08:13 07/30/18 08:13 07/30/18 08:13 Intake & Output 07/29/18 07/30/18 07/31/18 06:59 06:59 06:59 Intake Total 1250 Balance 1250 Weight 113 kg General appearance: PRESENT: well-developed, well-nourished Exam: 38 year old male. Head exam: PRESENT: normocephalic Eye exam: PRESENT: EOMI, PERRLA Mouth exam: PRESENT: tongue midline Neck exam: ABSENT: lymphadenopathy, tenderness Respiratory exam: PRESENT: decreased breath sounds, unlabored Cardiovascular exam: PRESENT: RRR GI/Abdominal exam: PRESENT: soft. ABSENT: tenderness Extremities exam: ABSENT: pedal edema Neurological exam: PRESENT: alert, awake, oriented to person, oriented to place, oriented to time, oriented to situation Psychiatric exam: PRESENT: appropriate affect Focused psych exam: ABSENT: pressured speech, restlessness Skin exam: PRESENT: normal color Results Laboratory Results: 07/30/18 06:18 07/30/18 06:18 07/29/18 07/29/18 07/29/18 15:44 15:44 15:44 WBC 9.0 RBC 4.18 L Hgb 14.5 Hct 41.6 MCV 100 H MCH 34.6 H MCHC 34.8 RDW 15.0 H Plt Count 293 Seg Neutrophils % 76.0 Lymphocytes % 14.7 Monocytes % 7.9 Eosinophils % 0.9 Basophils % 0.5 Absolute Neutrophils 6.9 Absolute Lymphocytes 1.3 Absolute Monocytes 0.7 Absolute Eosinophils 0.1 Absolute Basophils 0.0 Sodium 143.2 Potassium 4.7 Chloride 101 Carbon Dioxide 28 Anion Gap 14 BUN 14 Creatinine 0.90 Est GFR ( Amer) > 60 Est GFR (Non-Af Amer) > 60 Glucose 87 Calcium 9.7 Total Bilirubin 0.6 AST 46 ALT 103 H Alkaline Phosphatase 64 Total Protein 7.2 Albumin 4.8 TSH Urine Color YELLOW Urine Appearance CLEAR Urine pH 5.0 Ur Specific [place] 1.027 Urine Protein NEGATIVE Urine Glucose (UA) NEGATIVE Urine Ketones 80 H Urine Blood NEGATIVE Urine Nitrite NEGATIVE Ur Leukocyte Esterase NEGATIVE Urine WBC (Auto) 0 Urine RBC (Auto) 0 07/30/18 07/30/18 07/30/18 06:18 06:18 06:18 WBC 7.5 RBC 3.93 L Hgb 13.4 L Hct 39.6 MCV 101 H MCH 34.2 H MCHC 33.9 RDW 15.1 H Plt Count 278 Seg Neutrophils % 60.5 Lymphocytes % 26.9 Monocytes % 9.4 Eosinophils % 2.6 Basophils % 0.6 Absolute Neutrophils 4.6 Absolute Lymphocytes 2.0 Absolute Monocytes 0.7 Absolute Eosinophils 0.2 Absolute Basophils 0.0 Sodium 140.5 Potassium 5.2 H Chloride 104 Carbon Dioxide 26 Anion Gap 11 BUN 15 Creatinine 0.89 Est GFR ( Amer) > 60 Est GFR (Non-Af Amer) > 60 Glucose 80 Calcium 9.2 Total Bilirubin 0.8 AST 43 ALT 86 H Alkaline Phosphatase 57 Total Protein 6.1 L Albumin 4.0 TSH 9.13 H Urine Color Urine Appearance Urine pH Ur Specific [place] Urine Protein Urine Glucose (UA) Urine Ketones Urine Blood Urine Nitrite Ur Leukocyte Esterase Urine WBC (Auto) Urine RBC (Auto) 07/29/18 07/29/18 07/30/18 15:44 18:29 00:38 Creatine Kinase 54 L CK-MB (CK-2) Troponin I < 0.012 < 0.012 07/30/18 07/30/18 07/30/18 00:38 06:18 06:18 Creatine Kinase 50 L CK-MB (CK-2) < 0.22 < 0.22 Troponin I < 0.012 < 0.012 Impressions: Chest X-Ray 07/29/18 14:55 IMPRESSION: NO ACUTE RADIOGRAPHIC FINDING IN THE CHEST. Chest/Abdomen CTA 07/29/18 17:06 IMPRESSION: Small segmental pulmonary arterial embolism in the posterior segment left lower lobe. No emboli visualized in the central pulmonary arteries or remaining the segmental branches. Two enhancing lesions in a diffusely fatty infiltrated liver, the largest measures approximately 4.2 cm with mild heterogeneous appearance, this is in the inferior right lobe adjacent to the IVC, a 2nd 2.5 cm lesion is present in the posterior right lobe near the dome of the diaphragm. Limited exam. Consider outpatient follow-up ultrasound or dedicated hepatic protocol contrast CT to further assess. Venous Doppler Study 07/30/18 00:00 IMPRESSION: NO EVIDENCE DVT OR SVT IN EITHER LEG. Status: Image reviewed by me Assessment & Plan - Plan Summary Plan Summary: 1. Pulmonary Embolism - He will start Xarelto this evening. He has been on Lovenox. Agree with plans for Xarelto 15 mg po BID. 2. History of Testicular cancer - I will try to obtain records from [facility]. 3. New abnormal CT of Liver. Await CT A/P and if this appears to be solid mass, will arrange for CT guided biopsy as outpatient. Patient was discussed with Hospitalist. Dr. Graham.
[2018-07-30 13:16] LABS: CREATINE KINASE MB 0.25 ng/mL (<4.55)
[2018-07-30 13:21] LABS: TROPONIN I < 0.012 ng/mL
[2018-07-30] MEDS: RIVAROXABAN 15 MG TABLET PO SCH ×2 (14:47→16:55)
[2018-07-30] MEDS: BUPROPION HCL 100 MG TABLET PO SCH ×2 (14:48→22:50)
[2018-07-30] MEDS ORDERED: RIVAROXABAN 10 MG TABLET PO SCH (17:00)
--- NOTE | 2018-07-30 20:22 | RADIOLOGY REPORT (SQ) ---
EXAM DESCRIPTION: CT ABDOMEN PELVIS WITH IV CONTRAST COMPLETED DATE/TME: 07/30/2018 18:00 CLINICAL HISTORY: 38 years, Male, HEPATIC LESIONS COMPARISON: CTA chest 07/29/2018. TECHNIQUE: [id number] Images stored on PACS. All CT scanners at this facility use dose modulation, iterative reconstruction, and/or weight based dosing when appropriate to reduce radiation dose to as low as reasonably achievable (ALARA). [facility]: Dose Right [facility]: CareDose [facility]: Dose Right [facility]: Teradose 4D [facility]: Smart ResponseTek LIMITATIONS: None. FINDINGS: Limited evaluation of the lung bases shows a small left pleural effusion. Osseous structures are grossly intact. As described previous a, there is diffuse fatty infiltrative change to the liver. Subtle hyper dense lesion near the dome of the liver measures approximately 1.8 x 1.6 cm. The second previously described enhancing lesion in the caudate lobe measures approximately 3.8 x 3.0 cm. These were better seen on the prior exam likely due to phase of contrast. Given the degree of underlying fatty infiltrative change, these could reflect areas of differential perfusion or focal fatty sparing. Atypical hemangiomas are also possible. Findings could be confirmed with dedicated MRI. If MRI is not performed, consider six-month follow-up to ensure stability. The spleen, adrenal glands, pancreas, kidneys are unremarkable. No evidence for bowel obstruction. Normal appendix. No free air or free fluid. Fat-containing right inguinal hernia. IMPRESSION: Diffuse fatty infiltrative change to the liver. 2 subtle slightly hyperdense lesions within the liver, as described on prior CTA chest. These are less well seen on this exam, likely due to phase of contrast. These remain indeterminate but could reflect atypical hemangiomas, areas of differential perfusion, or focal fatty sparing. Other liver lesions are felt less likely. Consider dedicated MRI as follow-up versus 6 month follow-up CT with dedicated hepatic protocol to ensure stability. Small left pleural effusion. Fat-containing right inguinal hernia. TECHNICAL DOCUMENTATION: Quality ID # [id number]: Final reports with documentation of one or more dose reduction techniques (e.g., Automated exposure control, adjustment of the mA and/or kV according to patient size, use of iterative reconstruction technique) copyright 2011 [employer]- All Rights Reserved
[2018-07-31 04:50] LABS: ABSOLUTE EOSINOPHILS # (AUTO) 0.2 10^3/uL (0.0-0.6); ABSOLUTE LYMPHOCYTES (AUTO) 1.4 10^3/uL (0.5-4.7); ABSOLUTE MONOCYTES (AUTO) 0.7 10^3/uL (0.1-1.4); ABSOLUTE NEUT (AUTO) 6.2 10^3/uL (1.7-8.2); BASOPHILS % (AUTO) 0.4 % (0-2); EOSINOPHILS % (AUTO) 1.8 % (0-6); HEMATOCRIT 40.3 % (37.9-51.0); HEMOGLOBIN 13.9 g/dL (13.5-17.0); LYMPHOCYTES % (AUTO) 16.7 % (13-45); MEAN CORPUSCULAR HEMOGLOBIN 34.4 pg (27.0-33.4); MEAN CORPUSCULAR HGB CONC 34.4 g/dL (32.0-36.0); MEAN CORPUSCULAR VOLUME 100 fl (80-97); MONOCYTES % (AUTO) 7.7 % (3-13); PLATELET COUNT 260 10^3/uL (150-450); RED BLOOD COUNT 4.02 10^6/uL (4.35-5.55); RED CELL DISTRIBUTION WIDTH 14.5 % (11.5-14.0); SEGMENTED NEUTROPHILS % (AUTO) 73.4 % (42-78); TOTAL CELLS COUNTED % (AUTO) 100 %; WHITE BLOOD COUNT 8.5 10^3/uL (4.0-10.5)
[2018-07-31] MEDS: BUPROPION HCL 100 MG TABLET PO SCH (06:00)
[2018-07-31] MEDS: RIVAROXABAN 15 MG TABLET PO SCH (09:33)
[2018-07-31] MEDS: LISINOPRIL 10 MG TABLET PO SCH (09:33)
[2018-07-31] MEDS: FAMOTIDINE INJ/PF 20 MG/2 ML SDV IV SCH (09:33)
[2018-07-31 09:39] VITALS: BP 161/94
--- NOTE | 2018-07-31 13:15 | PDOC DISCHARGE SUMMARY ---
General - Admit/Disc Date/PCP Admission Date/Primary Care Provider: 07/29/18 18:54 Discharge Date: 07/31/18 - Discharge Diagnosis (1) Pulmonary emboli Is this a current diagnosis for this admission?: Yes Summary: Noted to have small subsegmental PE on CTA at admission. Unclear if this was provoked or unprovoked. Patient does have a history of testicular cancer so this is a risk factor Inpatient work up - Cardiac troponin negative * 3 - No evidence of DVTs in your lower extremities or abnormalities noted in echocardiogram - H&H stable, Xarelto well tolerated Outpatient plan - Treat PE for 3 months with a blood thinner called Xarelto. Take 5mg twice daily for 21 days and then take 20mg daily. Instructions will be provided in the prescriptions. - Follow up with a vineyardist (Dr. Shepard/Dr. Champion) in 3 months to determine if you need to be continued on Xarelto for longer. - Advise to patient: If experiencing new or worsening bleeding (gums, urine, or rectally), please call your doctor for further recommendations (2) Hepatic lesion Is this a current diagnosis for this admission?: Yes Summary: Noted to have 2 primary liver lesions (1.8 * 1.6cm near dome of liver) and 3.8 * 3.0cm in caudate lobe - Lesions are indeterminante but could represent atypical hemangiomas or focal fat sparing; per radiology, other etiologies are less likely - Diffuse fatty infiltrative changes noted Will need repeat CT with hepatic protocol or MRI in 6 months (3) Anxiety Is this a current diagnosis for this admission?: Yes (4) HTN (hypertension) Is this a current diagnosis for this admission?: Yes Summary: Noted to have elevated BP's this admission. Pt states that he has not history of elevated BP and think higher readings may be have been recorded during times of pain/discomfort. - He was started on Lisinopril 10mg this admission with improvement in BPs - Script given at discharge. He can measure BPs at home and if remains elevated, then should start anti-hypertensives - Patient to discuss further with this PCP (5) Testicular cancer Is this a current diagnosis for this admission?: Yes Summary: Appears to be in remission. No further follow up need follow up at this point. Can re-address with hematology/oncology upon follow up in 3 months for PE (6) Alcohol abuse Is this a current diagnosis for this admission?: Yes Summary: - Based on CT A/P, there is evidence of fatty disease in liver. - Counseled pt regarding cutting back or completely stop alcohol use. - Work with primary physician on this. - Additional Information Resuscitation Status: Full Code Prescriptions: Lisinopril [Prinivil 10 mg Tablet] 10 mg PO DAILY #30 tablet Rivaroxaban [Xarelto 10 mg Tablet] 20 mg PO QPM #60 tablet Rivaroxaban [Xarelto 15 mg Tablet] 15 mg PO BIDBS 14 Days #28 tablet Home Medications: Bupropion HCl [Wellbutrin Xl 300mg 24hr Tablet] 300 mg PO DAILY 07/29/18 Lisinopril [Prinivil 10 mg Tablet] 10 mg PO DAILY #30 tablet 07/31/18 Rivaroxaban [Xarelto 10 mg Tablet] 20 mg PO QPM #60 tablet 07/31/18 Rivaroxaban [Xarelto 15 mg Tablet] 15 mg PO BIDBS 14 Days #28 tablet 07/31/18 History of Present Illness History of Present Illness: MARIO VARGAS is a 38 year old male with history of hypertension, testicular cancer left side status post surgery, mild PTSD, anxiety disorder came to the emergency room with complaints of left-sided chest pain for the last several days. The chest pain gotten worse and from yesterday. 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 The workup done in the ER shows small pulmonary embolism in the left lower lobe on CT. Medical consult was called for admission and further management. Physical Exam Vital Signs: Temp Pulse Resp BP Pulse Ox 98.2 F 66 16 113/66 95 07/31/18 04:14 07/31/18 04:14 07/31/18 04:14 07/31/18 04:14 07/31/18 04:14 Intake & Output 07/30/18 07/31/18 08/01/18 06:59 06:59 06:59 Intake Total 1250 2962 Balance 1250 2962 Weight 113 kg 114.4 kg General appearance: PRESENT: no acute distress, cooperative, well-developed, well-nourished Head exam: PRESENT: atraumatic Mouth exam: PRESENT: moist Respiratory exam: PRESENT: unlabored. ABSENT: tachypnea, wheezes Cardiovascular exam: PRESENT: +S1, +S2. ABSENT: tachycardia GI/Abdominal exam: PRESENT: soft. ABSENT: tenderness Extremities exam: ABSENT: calf tenderness, tenderness, +1 edema Musculoskeletal exam: PRESENT: ambulatory Neurological exam: PRESENT: alert, awake, CN II-XII grossly intact. ABSENT: aphasic Psychiatric exam: PRESENT: appropriate affect, normal mood Skin exam: PRESENT: dry, intact Results Laboratory Results: 07/31/18 03:45 07/30/18 06:18 07/30/18 07/31/18 06:18 03:45 WBC 8.5 RBC 4.02 L Hgb 13.9 Hct 40.3 MCV 100 H MCH 34.4 H MCHC 34.4 RDW 14.5 H Plt Count 260 Seg Neutrophils % 73.4 Lymphocytes % 16.7 Monocytes % 7.7 Eosinophils % 1.8 Basophils % 0.4 Absolute Neutrophils 6.2 Absolute Lymphocytes 1.4 Absolute Monocytes 0.7 Absolute Eosinophils 0.2 Absolute Basophils 0.0 TSH 9.13 H 07/29/18 07/29/18 07/30/18 15:44 18:29 00:38 Creatine Kinase 54 L CK-MB (CK-2) Troponin I < 0.012 < 0.012 07/30/18 07/30/18 07/30/18 00:38 06:18 06:18 Creatine Kinase 50 L CK-MB (CK-2) < 0.22 < 0.22 Troponin I < 0.012 < 0.012 07/30/18 07/30/18 12:30 12:30 Creatine Kinase 53 L CK-MB (CK-2) 0.25 Troponin I < 0.012 Impressions: Chest X-Ray 07/29/18 14:55 IMPRESSION: NO ACUTE RADIOGRAPHIC FINDING IN THE CHEST. Chest/Abdomen CTA 07/29/18 17:06 IMPRESSION: Small segmental pulmonary arterial embolism in the posterior segme nt left lower lobe. No emboli visualized in the central pulmonary arteries or remaining the segmental branches. Two enhancing lesions in a diffusely fatty infiltrated liver, the largest measures approximately 4.2 cm with mild heterogeneous appearance, this is in the inferior right lobe adjacent to the IVC, a 2nd 2.5 cm lesion is present in the posterior right lobe near the dome of the diaphragm. Limited exam. Consider outpatient follow-up ultrasound or dedicated hepatic protocol contrast CT to further assess. Venous Doppler Study 07/30/18 00:00 IMPRESSION: NO EVIDENCE DVT OR SVT IN EITHER LEG. Abdomen/Pelvis CT 07/30/18 18:00 IMPRESSION: Diffuse fatty infiltrative change to the liver. 2 subtle slightly hyperdense lesions within the liver, as described on prior CTA chest. These are less well seen on this exam, likely due to phase of contrast. These remain indeterminate but could reflect atypical hemangiomas, areas of differential perfusion, or focal fatty sparing. Other liver lesions are felt less likely. Consider dedicated MRI as follow-up versus 6 month follow-up CT with dedicated hepatic protocol to ensure stability. Small left pleural effusion. Fat-containing right inguinal hernia. TECHNICAL DOCUMENTATION: Quality ID # [id number]: Final reports with documentation of one or more dose reduction techniques (e.g., Automated exposure control, adjustment of the mA and/or kV according to patient size, use of iterative reconstruction technique) copyright 2011 [employer]- All Rights Reserved Qualifiers - * PATIENT BEING DISCHARGED WITH ANY OF THE FOLLOWING DIAGNOSIS: VTE (PE or DVT) VTE patient discharged on overlapping Therapy?: Yes
== END 2018-07-31 09:55 | disposition home or self-care (01) ==
LOC: ER 13:17 → INTOOBSV 18:54 → EH 18:54 → 3N 20:39
PROVIDERS: ADMIT Hospitalist; ATTEND Hospitalist
PROC: HZ31ZZZ Individual Counseling for Substance Abuse Treatment, Behavioral (ICD-10-PCS; principal; 2018-07-29)
DX: I26.99 Other pulmonary embolism without acute cor pulmonale (principal); K76.9 Liver disease, unspecified; K76.0 Fatty (change of) liver, not elsewhere classified; I10 Essential (primary) hypertension; F41.1 Generalized anxiety disorder; F10.10 Alcohol abuse, uncomplicated; K40.90 Unilateral inguinal hernia, without obstruction or gangrene, not specified as recurrent; R11.0 Nausea; M54.5 Low back pain; E66.3 Overweight; Z73.3 Stress, not elsewhere classified; M19.90 Unspecified osteoarthritis, unspecified site; F17.220 Nicotine dependence, chewing tobacco, uncomplicated; Z90.79 Acquired absence of other genital organ(s); Z85.47 Personal history of malignant neoplasm of testis; Z79.899 Other long term (current) drug therapy; Z98.890 Other specified postprocedural states; Z83.2 Family history of diseases of the blood and blood-forming organs and certain disorders involving the immune mechanism
CPT/HCPCS: 93005 ×2; 99285; 96374; 36415 ×3; 82553; 82550; 84443; 85025 ×3; 85610; 80053 ×2; 81001; 84484 ×2; 83036; 85379; 85597; 85598; 85613 ×2; 85730; 85732 ×3; 86147 ×3; 86148 ×2; 86849 ×2; 86146 ×3; 93306; 93970; 71045; 71275; 74177; 93010 ×2; 99407; G0378 ×3; J1650 ×2; J1885; J2060; J3490 ×2; S0028 ×3